=== PATIENT | female | born 1945 | race Caucasian/White ===

== ENCOUNTER 2017-05-06 12:35 | Emergency (ER) | payer MEDICARE ==
[2017-05-06 14:25] VITALS: BP 140/70
--- NOTE | 2017-05-06 15:21 | XRay Report ---
RIGHT SHOULDER, 3 VIEWS: HISTORY: right shoulder pain. Mild osteopenia. No acute osseous injury or joint pathology is detected. Mild osteoarthritic changes are identified. The soft tissues are unremarkable. IMPRESSION: Osteopenia. Osteoarthritis.
== END 2017-05-06 14:30 | disposition left against medical advice (07) ==
LOC: ED 12:35
DX: M25.512 Pain in left shoulder (principal); Z53.21 Procedure and treatment not carried out due to patient leaving prior to being seen by health care provider

== ENCOUNTER 2017-05-28 14:39 | Emergency (ER) | payer MEDICARE ==
[2017-05-28 15:58] LABS: Basophils % (Auto) 0.3 % (0.0-1.8); Hematocrit 42.7 % (30.3-42.9); Hemoglobin 14.8 gm/dl (10.1-14.3); Lymphocytes # (Auto) 1.2 K/mm3 (1.2-5.4); Lymphocytes % (Auto) 23.9 % (13.4-35.0); Mean Corpuscular HGB Conc 35 % (30-34); Mean Corpuscular Hemoglobin 33 pg (28-32); Mean Corpuscular Volume 95 fl (79-97); Monocytes # (Auto) 0.6 K/mm3 (0.0-0.8); Monocytes % (Auto) 11.4 % (0.0-7.3); Platelet Count 165 K/mm3 (140-440); Red Blood Count 4.51 M/mm3 (3.65-5.03); Red Cell Distribution Width 13.1 % (13.2-15.2)
[2017-05-28 16:08] LABS: Bilirubin,Urine NEG (Negative); Blood,Urine NEG (Negative); Color,Urine Yellow (Yellow); Mucus,Urine FEW /HPF; Nitrite,Urine NEG (Negative); Protein,Urine <15 mg/dL mg/dL (Negative); Urobilinogen,Urine < 2.0 mg/dL (<2.0)
[2017-05-28 16:16] LABS: Alanine Aminotransferase 19 units/L (7-56); Albumin 3.7 g/dL (3.9-5); BUN/Creatinine Ratio 16; Blood Urea Nitrogen 8 mg/dL (7-17); Calcium 9.2 mg/dL (8.4-10.2); Hemolysis Index 14; Lipase 23 units/L (13-60)
[2017-05-28 22:58] VITALS: BP 147/83
--- NOTE | 2017-05-28 23:56 | XRay Report ---
FINAL REPORT PROCEDURE: XR CHEST ROUTINE 2V TECHNIQUE: PA and lateral chest radiographs were obtained. CPT 38527 HISTORY: cough COMPARISON: No prior studies are available for comparison. FINDINGS: Heart: Normal. Mediastinum/Vessels: Normal. Lungs/Pleural space: Normal. Bony thorax: No acute osseous abnormality. Other: IMPRESSION: There is no evidence of an acute cardiopulmonary process.
--- NOTE | 2017-05-28 23:58 | Emergency Department Report ---
HPI - General Chief Complaint: Nausea/Vomiting/Diarrhea Time Seen by Provider: 05/28/17 22:55 - HPI HPI: This is a 71-year-old patient female presents to the emergency department, with her daughter translating bedside, with complaint of a 2 day history of some nausea, vomiting, mixed dry and productive cough and body aches. There is also a subjective fever and she has felt warm but there is no recorded temperatures. She has a past medical history of arthritis. No recent travel or sick contacts at home. She did not take anything for her symptoms prior to presentation. She does not smoke or use any illicit drug use. ED Past Medical Hx - Past Medical History Previous Medical History?: Yes Hx Arthritis: Yes - Surgical History Past Surgical History?: Yes Additional Surgical History: Back surgery, Left shoulder surgery - Social History Smoking Status: Never Smoker Substance Use Type: Non Opiate Pain - Medications Home Medications: Home Medications Medication Instructions Recorded Confirmed Last Taken Type Benzonatate [Tessalon Perles] 100 mg PO Q8HR PRN #20 capsule 05/29/17 Unknown Rx ED Review of Systems ROS: Stated complaint: FLU LIKE SYMPTOMS Other details as noted in HPI Comment: All other systems reviewed and negative Constitutional: fever (subjective). denies: diaphoresis Eyes: denies: eye pain, eye discharge, vision change ENT: denies: ear pain, throat pain Respiratory: cough. denies: shortness of breath Cardiovascular: denies: chest pain, palpitations Gastrointestinal: nausea, vomiting. denies: abdominal pain Genitourinary: denies: urgency, dysuria, discharge Musculoskeletal: myalgia. denies: joint swelling Skin: denies: rash, lesions Neurological: denies: headache, weakness, paresthesias Physical Exam - Physical Exam Vital Signs: Vital Signs 05/28/17 05/28/17 14:46 22:58 Temperature 98.2 F 97.8 F Pulse Rate 101 H 89 Respiratory 16 15 Rate Blood Pressure 118/75 Blood Pressure 147/83 [Left] O2 Sat by Pulse 97 98 Oximetry Physical Exam: GENERAL: The patient is well-developed well-nourished. HENT: Normocephalic. Atraumatic. Patient has moist mucous membranes. EYES: Extraocular motions are intact. Pupils equal reactive to light bilaterally. NECK: Supple. Trachea is midline. CHEST/LUNGS: Clear to auscultation. Occasional dry cough heard during examination. There is no respiratory distress noted. HEART/CARDIOVASCULAR: Regular. There is no tachycardia. There is no murmur. ABDOMEN: Abdomen is soft, nontender. Patient has normal bowel sounds. There is no abdominal distention. SKIN: Skin is warm and dry. NEURO: The patient is awake, alert, and oriented. The patient is cooperative. The patient has no focal neurologic deficits. The patient has normal speech. MUSCULOSKELETAL: There is no tenderness or deformity. There is no evidence of acute injury. ED Course Vital Signs 05/28/17 05/28/17 14:46 22:58 Temperature 98.2 F 97.8 F Pulse Rate 101 H 89 Respiratory 16 15 Rate Blood Pressure 118/75 Blood Pressure 147/83 [Left] O2 Sat by Pulse 97 98 Oximetry ED Medical Decision Making - Lab Data Result diagrams: 05/28/17 15:36 05/28/17 15:36 - EKG Data -: EKG Interpreted by Me EKG shows normal: sinus rhythm, axis (left axis deviation), intervals, QRS complexes, ST-T waves (nonspecific St-T waves) Rate: normal - EKG Data When compared to previous EKG there are: previous EKG unavailable Interpretation: nonspecific ST-T wave franck - Radiology Data Radiology results: image reviewed interpreted by me: Chest x-ray does not show any acute process. There are no pleural effusions, obvious pneumonia and there is no pneumothorax. - Medical Decision Making She presents with a 2 day history of a cough, nausea and vomiting and subjective fever. Abdomen unremarkable including no leukocytosis, electrolyte abnormalities, renal insufficiency or glucose abnormalities. Chest x-ray does not show any pneumonia, pleural effusions, pneumothorax or any other acute process. She is negative for influenza. Vital signs stable including being afebrile. She appears safe for discharge home at this time. She will take Tylenol and/or ibuprofen as needed for fever or discomfort and she was given a prescription for Tessalon Perles for cough. She has good follow-up with Dr. Arnold Fry across the street and has been encouraged to see them in a few days but return to the emergency Department with any worsening of her symptoms or any acute distress. - Differential Diagnosis influenza, URI, pneumonia, food poisoning Critical Care Time: No Critical care attestation.: If time is entered above; I have spent that time in minutes in the direct care of this critically ill patient, excluding procedure time. ED Disposition Clinical Impression: Viral syndrome Upper respiratory infection Qualifiers: URI type: unspecified URI Qualified Code(s): J06.9 - Acute upper respiratory infection, unspecified Disposition: TO HOME OR SELFCARE Is pt being admited?: No Condition: Stable Instructions: Upper Respiratory Infection (ED), Viral Syndrome (ED) Additional Instructions: Please follow-up with your primary care physician in the next few days. Return to the emergency Department with any worsening of your symptoms or any acute distress. He can use Tylenol every 4 hours and ibuprofen every 6 hours, using weight-based dosing, as needed for fever or discomfort. Prescriptions: Benzonatate [Tessalon Perles] 100 mg PO Q8HR PRN #20 capsule PRN Reason: Cough Referrals: ARNOLD FRY MD [Staff Physician] - [facility] Time of Disposition: 00:43
[2017-05-28] MEDS ORDERED: ZOFRAN ODT PO ONE (23:59)
== END 2017-05-29 00:49 | disposition home or self-care (01) ==
LOC: ED 14:39
DX: J06.9 Acute upper respiratory infection, unspecified (principal); B34.9 Viral infection, unspecified; M19.90 Unspecified osteoarthritis, unspecified site
CPT/HCPCS: 36415; 71046; 80053; 81001; 83690; 85025; 87400; 93005; 93010; Q0162

== ENCOUNTER 2019-12-24 07:53 | Observation (INO) | payer MEDICARE ==
[2019-12-24 08:55] LABS: Basophils % (Auto) 0.2 % (0.0-1.8); Eosinophils # (Auto) 0.1 K/mm3 (0.0-0.4); Eosinophils % (Auto) 1.5 % (0.0-4.3); Hematocrit 39.5 % (30.3-42.9); Hemoglobin 13.4 gm/dl (10.1-14.3); Lymphocytes # (Auto) 1.3 K/mm3 (1.2-5.4); Lymphocytes % (Auto) 20.6 % (13.4-35.0); Mean Corpuscular HGB Conc 34 % (30-34); Mean Corpuscular Volume 96 fl (79-97); Monocytes # (Auto) 0.5 K/mm3 (0.0-0.8); Monocytes % (Auto) 8.7 % (0.0-7.3); Platelet Count 223 K/mm3 (140-440); Red Blood Count 4.11 M/mm3 (3.65-5.03); Red Cell Distribution Width 14.9 % (13.2-15.2)
[2019-12-24 09:22] LABS: Alanine Aminotransferase 17 units/L (7-56); Albumin 3.7 g/dL (3.9-5); BUN/Creatinine Ratio 31; Blood Urea Nitrogen 22 mg/dL (7-17); Calcium 9.8 mg/dL (8.4-10.2); Hemolysis Index 4
[2019-12-24] MEDS ORDERED: ALUM-MAG HYDROXIDE-SIMETHICONE 200-200-20MG/5ML ORAL LIQD 30 ML PO ONE (10:32)
[2019-12-24] MEDS ORDERED: LIDOCAINE VISCOUS 2% 15 ML ORAL LIQD PO ONE (10:32)
--- NOTE | 2019-12-24 10:35 | Emergency Department Report ---
HPI - General Chief Complaint: Abdominal Pain Time Seen by Provider: 12/24/19 10:01 - [facility] HPI: This is a 74-year-old [place] female who presents to the emergency department with a 10-day history of lower sternal chest pain and midline upper abdominal/e pigastric pain. The pain has been constant over the past 10 days. There are no known aggravating or alleviating factors. It is not affected by eating food. She has taken Benadryl and omeprazole for her symptoms without any relief. She denies any shortness of breath, fever, nausea, vomiting, constipation, diarrhea, dysuria. Patient has a history of chronic back pain but does not feel that the pain radiates to her back. No recent travel or sick contacts at home. She has a primary care physician but has not seen them regarding her symptoms. The patient does not speak any Nauruan and therefore the language line interpretation services were used so the patient could provide information using her pamunkey Lao language. ED Past Medical Hx - Past Medical History Previous Medical History?: Yes Hx Arthritis: Yes - Surgical History Past Surgical History?: Yes Additional Surgical History: Back surgery, Left shoulder surgery. Right knee - Social History Smoking Status: Never Smoker Substance Use Type: Non Opiate Pain - Medications Home Medications: Home Medications Medication Instructions Recorded Confirmed Last Taken Type Benzonatate [Tessalon Perles] 100 mg PO Q8HR PRN #20 capsule 05/29/17 Unknown Rx ED Review of Systems ROS: Stated complaint: ABD PAIN Other details as noted in HPI Comment: All other systems reviewed and negative Constitutional: denies: chills, fever Eyes: denies: eye pain, vision change ENT: denies: ear pain, throat pain Respiratory: denies: cough, shortness of breath Cardiovascular: chest pain. denies: palpitations Gastrointestinal: abdominal pain. denies: vomiting Genitourinary: denies: dysuria, discharge Musculoskeletal: denies: joint swelling, arthralgia Skin: denies: rash, lesions Neurological: denies: headache, weakness Physical Exam - Physical Exam Vital Signs: Vital Signs 12/24/19 07:57 Temperature 98 F Pulse Rate 110 H Respiratory 18 Rate Blood Pressure 139/83 [Right] O2 Sat by Pulse 96 Oximetry ED Course Vital Signs 12/24/19 07:57 Temperature 98 F Pulse Rate 110 H Respiratory 18 Rate Blood Pressure 139/83 [Right] O2 Sat by Pulse 96 Oximetry - Reevaluation(s) Reevaluation #1: 12/24/19 13:52 Lab Results 12/24/19 12/24/19 12/24/19 Range/Units 08:31 08:31 10:41 WBC 6.1 (4.5-11.0) K/mm3 RBC 4.11 (3.65-5.03) M/mm3 Hgb 13.4 (10.1-14.3) gm/dl Hct 39.5 (30.3-42.9) % MCV 96 (79-97) fl MCH 33 H (28-32) pg MCHC 34 (30-34) % RDW 14.9 (13.2-15.2) % Plt Count 223 (140-440) K/mm3 Lymph % (Auto) 20.6 (13.4-35.0) % [place] % (Auto) 8.7 H (0.0-7.3) % Eos % (Auto) 1.5 (0.0-4.3) % Baso % (Auto) 0.2 (0.0-1.8) % Lymph # 1.3 (1.2-5.4) K/mm3 Kent # 0.5 (0.0-0.8) K/mm3 Eos # 0.1 (0.0-0.4) K/mm3 Baso # 0.0 (0.0-0.1) K/mm3 Seg Neutrophils % 69.0 (40.0-70.0) % Seg Neutrophils # 4.2 (1.8-7.7) K/mm3 Sodium 142 (137-145) mmol/L Potassium 3.6 (3.6-5.0) mmol/L Chloride 104.8 (98-107) mmol/L Carbon Dioxide 24 (22-30) mmol/L Anion Gap 17 mmol/L BUN 22 H (7-17) mg/dL Creatinine 0.7 (0.6-1.2) mg/dL Estimated GFR > 60 ml/min BUN/Creatinine Ratio 31 % Glucose 103 H (65-100) mg/dL Calcium 9.8 (8.4-10.2) mg/dL Total Bilirubin 0.50 (0.1-1.2) mg/dL AST 20 (5-40) units/L ALT 17 (7-56) units/L Alkaline Phosphatase 120 (35-129) units/L Troponin T < 0.010 (0.00-0.029) ng/mL Total Protein 6.4 (6.3-8.2) g/dL Albumin 3.7 L (3.9-5) g/dL Albumin/Globulin Ratio 1.4 % Lipase 40 (13-60) units/L Urine Color (Yellow) Urine Turbidity (Clear) Urine pH (5.0-7.0) Ur Specific [place] (1.003-1.030) Urine Protein (Negative) mg/dL Urine Glucose (UA) (Negative) mg/dL Urine Ketones (Negative) mg/dL Urine Blood (Negative) Urine Nitrite (Negative) Urine Bilirubin (Negative) Urine Urobilinogen (<2.0) mg/dL Ur Leukocyte Esterase (Negative) Urine WBC (Auto) (0.0-6.0) /HPF Urine RBC (Auto) (0.0-6.0) /HPF U Epithel Cells (Auto) (0-13.0) /HPF Urine Mucus /HPF 12/24/19 Range/Units 11:49 WBC (4.5-11.0) K/mm3 RBC (3.65-5.03) M/mm3 Hgb (10.1-14.3) gm/dl Hct (30.3-42.9) % MCV (79-97) fl MCH (28-32) pg MCHC (30-34) % RDW (13.2-15.2) % Plt Count (140-440) K/mm3 Lymph % (Auto) (13.4-35.0) % Kent % (Auto) (0.0-7.3) % Eos % (Auto) (0.0-4.3) % Baso % (Auto) (0.0-1.8) % Lymph # (1.2-5.4) K/mm3 Kent # (0.0-0.8) K/mm3 Eos # (0.0-0.4) K/mm3 Baso # (0.0-0.1) K/mm3 Seg Neutrophils % (40.0-70.0) % Seg Neutrophils # (1.8-7.7) K/mm3 Sodium (137-145) mmol/L Potassium (3.6-5.0) mmol/L Chloride (98-107) mmol/L Carbon Dioxide (22-30) mmol/L Anion Gap mmol/L BUN (7-17) mg/dL Creatinine (0.6-1.2) mg/dL Estimated GFR ml/min BUN/Creatinine Ratio % Glucose (65-100) mg/dL Calcium (8.4-10.2) mg/dL Total Bilirubin (0.1-1.2) mg/dL AST (5-40) units/L ALT (7-56) units/L Alkaline Phosphatase (35-129) units/L Troponin T (0.00-0.029) ng/mL Total Protein (6.3-8.2) g/dL Albumin (3.9-5) g/dL Albumin/Globulin Ratio % Lipase (13-60) units/L Urine Color Straw (Yellow) Urine Turbidity Clear (Clear) Urine pH 7.0 (5.0-7.0) Ur Specific [place] 1.031 H (1.003-1.030) Urine Protein <15 mg/dl (Negative) mg/dL Urine Glucose (UA) Neg (Negative) mg/dL Urine Ketones Neg (Negative) mg/dL Urine Blood Neg (Negative) Urine Nitrite Neg (Negative) Urine Bilirubin Neg (Negative) Urine Urobilinogen < 2.0 (<2.0) mg/dL Ur Leukocyte Esterase Tr (Negative) Urine WBC (Auto) 4.0 (0.0-6.0) /HPF Urine RBC (Auto) 2.0 (0.0-6.0) /HPF U Epithel Cells (Auto) 1.0 (0-13.0) /HPF Urine Mucus Few /HPF ED Medical Decision Making - Lab Data Result diagrams: 12/24/19 08:31 12/24/19 08:31 - EKG Data -: EKG Interpreted by Me EKG shows normal: sinus rhythm, axis, intervals, QRS complexes, ST-T waves Rate: normal - EKG Data When compared to previous EKG there are: previous EKG unavailable Interpretation: normal EKG - Radiology Data Radiology results: report reviewed, image reviewed interpreted by me: Chest x-ray does not show any acute process. There are no pleural effusions, obvious pneumonia and there is no pneumothorax. No significant cardiomegaly. Abdominal x-ray shows nonspecific nonobstructive bowel gas. There are some radiopaque objects within the small and large intestines that appears consistent with medications and/or pills taken. CTA CHEST, ABDOMEN, AND PELVIS WITH IV CONTRAST INDICATION: Midsternal chest pain CONTRAST: 100 cc Omnipaque 350 IV COMPARISON: None available. Three-plane MIP reconstructions were produced. All CT scans at this location are performed using CT dose reduction for ALARA by means of automated exposure control. FINDINGS: No significant axillary or chest wall abnormalities are seen. No mediastinal or hilar masses are noted. Minimal coronary artery calcifications are seen. No pleural effusions are noted. No obvious endobronchial lesions are seen. No pneumothorax or pneumomediastinum are noted. Mild bilateral atelectatic changes are seen. No significant acute infiltrates are noted. Calcified granulomata are noted in the right lower lobe. No pulmonary soft tissue nodules or masses are seen. No pneumoperitoneum is seen. Liver shows mild fatty infiltration but is not significantly enlarged. I see no significant abnormalities of the adrenals, pancreas, or spleen. Gallbladder and bile ducts appear within normal limits. No urinary obstructive changes are seen but there appears to be mild bilateral nephrolithiasis. Mild scarring is seen in the left kidney. No lymphadenopathy is seen. No free fluid is noted. No adnexal masses are seen. No evidence of bowel obstruction is noted. No focal inflammatory changes are seen. Appendix appears within normal limits. The distal antrum of the stomach may show mild wall thickening but I do not see surrounding i nflammatory change and no obvious ulcer is noted. Duodenum shows no abnormalities. The thoracic aorta shows mild atherosclerotic changes. There is no evidence of dissection. No significant stenosis is seen. Ectasia of the ascending portion is noted to a diameter of 3.5 cm. The distal arch is also mi ldly ectatic to a diameter of 2.9 cm other portions appear within normal limits. Visualized pulmonary arteries show no evidence of pulmonary thromboembolism. The abdominal aorta shows atherosclerotic changes but no aneurysmal dilatation, stenosis, or evidence of dissection. The celiac axis shows atherosclerotic changes at the origin but I do not see significant stenosis. Mesenteric artery shows moderate atherosclerotic changes at the origin but also does not show significant stenosis. Renal arteries show no significant stenoses. Inferior mesenteric artery opacifies. Flow is seen into the iliac system bilaterally with no aneurysmal dilatation seen and no significant iliac artery stenosis noted. Internal iliac arteries opacify. The visualized portions of the upper femoral systems bilaterally show no significant lesions. IMPRESSION: 1. No significant vascular abnormality is seen with only mild changes as detailed above in multiple areas 2. Question of wall thickening in the distal antrum of the stomach though possibly artifactual. Distal gastritis or peptic ulcer disease could be possible and clinical correlation is suggested. No obvious ulcer is detected and no surrounding inflammation is seen. 3. Bilateral nephrolithiasis without obstructive change - Medical Decision Making This patient presents with a 10-day history of lower midsternal pain and epigastric pain. The abdominal pain is reproducible to palpation, but the chest does not. EKG does not have any morphology consistent with ST elevation [place]. Chest x-ray does not show any pneumonia, pleural effusions, pneumothorax, or any other acute process. Abdominal x-ray shows nonspecific nonobstructive bowel gas. The patient's labs have been unremarkable thus far including CBC, meta bolic panel and a negative troponin. Given the patient's age and her complaints of midline pain to the chest and abdomen, she had a CT angiography study done of the chest, abdomen, and pelvis to further evaluate the aorta, rule out pulmonary emboli, and viewed the solid organs. The CT angiography studies resulted as some mild inflammation to the stomach but no signs of any ulcer, perforation, or any other acute processes. Patient was given a GI cocktail and she says that it helped at first but the pain is come back to its initial intensity. Given that she continues to have chest pain, and has not had a full cardiac work-up at any point, the patient will be admitted to the hospital for further evaluation and treatment. She was accepted for admission by the hospitalist, Dr. Goins. Critical Care Time: No Critical care attestation.: If time is entered above; I have spent that time in minutes in the direct care of this critically ill patient, excluding procedure time. ED Disposition Clinical Impression: Acute chest pain, Epigastric pain, Chest pain, rule out acute myocardial infarction Disposition: OP ADMIT IP TO THIS HOSP Is pt being admited?: Yes Condition: Fair Referrals: LEANDRO FRY MD [Primary Care Provider] - 3-5 Days Time of Disposition: 12:41 HEART Score - HEART Score History: Slightly suspicious EKG: Normal Age: > 65 Risk factors: 1-2 risk factors Troponin: Troponin T < 0.010 ng/mL (0.00-0.029) 12/24/19 10:41 Troponin: < normal limit HEART Score: 3 - Critical Actions Critical Actions: 0-3 pts:0.9-1.7%risk of adverse cardiac event.Candidate for discharge AMELIA score - Amelia Score Age > 65: (1) Yes Aspirin use within the Past 7 Days: (0) No 3 or more CAD Risk Factors: (0) No 2 or more Angina events in past 24 hrs: (1) Yes Known CAD with more than 50% Stenosis: (0) No Elevated Cardiac Markers: (0) No ST Deviation Greater than 0.5mm: (0) No AMELIA Score: 2
--- NOTE | 2019-12-24 11:30 | XRay Report ---
Acute abdomen series 3 views 1043 INDICATION: Abdominal pain, lower sternal area pain COMPARISON: Chest x-ray 05/28/2017 Chronic changes are again seen in the lung tenorio including calcified granulomata in the left apical area. No obvious acute infiltrates are seen. Artifact overlies the upper chest. No pneumoperitoneum i s seen. Multiple high density foci are seen in the colon from ingestion. No evidence of bowel obstruc tion is seen. Calcifications of the lower pelvis probably are vascular. Lumbar scoliosis and degenera tive changes are seen. Signer Name: Rayray Decker MD Signed: 12/24/2019 11:26 AM Workstation Name: [id number]
[2019-12-24 12:02] LABS: Bilirubin,Urine NEG (Negative); Blood,Urine NEG (Negative); Color,Urine Straw (Yellow); Mucus,Urine FEW /HPF; Protein,Urine <15 mg/dL mg/dL (Negative); Urobilinogen,Urine < 2.0 mg/dL (<2.0)
--- NOTE | 2019-12-24 12:15 | Cat Scan Report ---
CTA CHEST, ABDOMEN, AND PELVIS WITH IV CONTRAST INDICATION: Midsternal chest pain CONTRAST: 100 cc Omnipaque 350 IV COMPARISON: None available. Three-plane MIP reconstructions were produced. All CT scans at this location are performed using CT d ose reduction for ALARA by means of automated exposure control. FINDINGS: No significant axillary or chest wall abnormalities are seen. No mediastinal or hilar haseeb s are noted. Minimal coronary artery calcifications are seen. No pleural effusions are noted. No obvi ous endobronchial lesions are seen. No pneumothorax or pneumomediastinum are noted. Mild bilateral at electatic changes are seen. No significant acute infiltrates are noted. Calcified granulomata are not ed in the right lower lobe. No pulmonary soft tissue nodules or masses are seen. No pneumoperitoneum is seen. Liver shows mild fatty infiltration but is not significantly enlarged. I see no significant abnormalities of the adrenals, pancreas, or spleen. Gallbladder and bile ducts ap pear within normal limits. No urinary obstructive changes are seen but there appears to be mild bilat eral nephrolithiasis. Mild scarring is seen in the left kidney. No lymphadenopathy is seen. No free f luid is noted. No adnexal masses are seen. No evidence of bowel obstruction is noted. No focal inflam matory changes are seen. Appendix appears within normal limits. The distal antrum of the stomach may show mild wall thickening but I do not see surrounding inflammatory change and no obvious ulcer is no javier. Duodenum shows no abnormalities. The thoracic aorta shows mild atherosclerotic changes. There is no evidence of dissection. No signifi cant stenosis is seen. Ectasia of the ascending portion is noted to a diameter of 3.5 cm. The distal arch is also mildly ectatic to a diameter of 2.9 cm other portions appear within normal limits. Visua lized pulmonary arteries show no evidence of pulmonary thromboembolism. The abdominal aorta shows atherosclerotic changes but no aneurysmal dilatation, stenosis, or evidence of dissection. The celiac axis shows atherosclerotic changes at the origin but I do not see signific ant stenosis. Mesenteric artery shows moderate atherosclerotic changes at the origin but also does not show signifi cant stenosis. Renal arteries show no significant stenoses. Inferior mesenteric artery opacifies. Moises w is seen into the iliac system bilaterally with no aneurysmal dilatation seen and no significant piotr ac artery stenosis noted. Internal iliac arteries opacify. The visualized portions of the upper femor al systems bilaterally show no significant lesions. IMPRESSION: 1. No significant vascular abnormality is seen with only mild changes as detailed above in multiple a reas 2. Question of wall thickening in the distal antrum of the stomach though possibly artifactual. Dista l gastritis or peptic ulcer disease could be possible and clinical correlation is suggested. No obvio us ulcer is detected and no surrounding inflammation is seen. 3. Bilateral nephrolithiasis without obstructive change Signer Name: Rayray Decker MD Signed: 12/24/2019 12:11 PM Workstation Name: [id number]
[2019-12-24] MEDS ORDERED: ASPIRIN 81 MG TAB CHEW PO ONE (12:42)
[2019-12-24] MEDS ORDERED: NITROGLYCERIN 0.4 MG TAB SUBL SL PRN (12:52)
[2019-12-24] MEDS ORDERED: ACETAMINOPHEN 325 MG TAB PO PRN (12:52)
[2019-12-24] MEDS ORDERED: MORPHINE 4 MG/1 ML INJ IV PRN ×2 (12:52→14:20)
--- NOTE | 2019-12-24 14:08 | History and Physical Report ---
<VALDO SCHNEIDER - Last Filed: 12/24/19 16:56> History of Present Illness Date of examination: 12/24/19 Chief complaint: abd pain for 10 days History of present illness: This is a 74-year-old female with chronic back pain, arthritis, scoliosis, gastritis, GERD and "leaky valves" who presents to the emergency department today for a 10-day history of upper abdominal pain in the epigastric region which she described as a burning sharp pain from the "top of the stomach at sphincter to the end at the esophagus" She states the pain gets worse with eating and does not have any radiation to her throat or back. The only the relieves her pain is IV pain medications which she received which was received in the emergency department. She states she took omeprazole and Benadryl without any relief at home. She denies any shortness of breath, fever, nausea vomiting, constipation, diarrhea, cough, night sweats or recent weight loss. She denies any melena, hematochezia, or hematemesis. She denies any recent travel, contact with sick individuals, contact with any presents with known COVID-19 infections. Work-up in the emergency department reveals hypokalemia at 3.6. A CT abdomen obtained in the emergency department shows lumbar scoliosis and degenerative changes and a calcified granuloma in her apical left lung. A CT abdomen/pelvis shows mild arteriosclerotic changes to her thoracic aorta, abdominal aorta, mesenteric artery, mild bilateral atelectatic changes in her lower lungs, mild fatty liver, mild bilateral nephrolithiasis without obstruction and wall thickening of the distal atrium of stomach which can be hospital sales representative of distal gastritis or peptic ulcer. GI was consulted. She will be admitted to the hospitalist service for pain control and work-up of abdominal pain. Attempted to contact advance care planning at bedside however the patient was not able to understand the question. Her history is obtained with the use of the parts interpreter line. Past History Past Medical History: arthritis, GERD, other (Scoliosis, arthritis, chronic back pain). denies: diabetes, ESRD Past Surgical History: No surgical history Social history: , lives with family. denies: smoking, alcohol abuse, prescription drug abuse, IV drug use Family history: no significant family history Medications and Allergies Allergies Allergy/AdvReac Type Severity Reaction Status Date / Time No Known Allergies Allergy Unverified 05/06/17 14:25 Home Medications Medication Instructions Recorded Confirmed Last Taken Type No Known Home Medications [No 12/24/19 12/24/19 Unknown History Reported Home Medications] Active Meds: Active Medications Acetaminophen (Tylenol) 650 mg PO Q6H PRN PRN Reason: Pain, Mild (1-3) Morphine Sulfate (Morphine) 2 mg IV Q5MIN PRN PRN Reason: Chest Pain Nitroglycerin (Nitrostat) 0.4 mg SL Q5M PRN PRN Reason: Chest Pain Sodium Chloride (Sodium Chloride Flush Syringe 10 Ml) 10 ml IV PRN PRN PRN Reason: LINE FLUSH Review of Systems Constitutional: no weight loss, no weight gain, no fever, no chills, no sweats, no night sweats, no anorexia, no fatigue, no weakness, no malaise, no lethargy Ears, nose, mouth and throat: no ear pain, no ear discharge, no tinnitis, no decreased hearing, no nose pain, no nasal congestion, no nasal discharge, no sinus pressure, no epistaxis Cardiovascular: no chest pain, no orthopnea, no palpitations, no rapid/irregular heart beat, no edema, no syncope, no lightheadedness, no shortness of breath, no dyspnea on exertion, no high blood pressure, no leg edema Respiratory: no cough, no cough with sputum, no excessive sputum, no hemoptysis, no shortness of breath, no dyspnea on exertion Gastrointestinal: abdominal pain (See HPI for details), no nausea, no vomiting, no diarrhea, no constipation, no change in bowel habits, no hematemesis, no coffee ground emesis, no BRBPR, no melena, no hematochezia, no loss of appetite Genitourinary Female: no pelvic pain, no flank pain, no urgency, no stress incontinence Rectal: no pain, no incontinence, no bleeding, no hemorrhoids Musculoskeletal: no neck stiffness, no neck pain, no shooting arm pain, no arm numbness/tingling, no low back pain, no shooting leg pain, no leg numbness/ti ngling, no frequent falls Integumentary: no rash, no pruritis, no redness, no sores, no wounds, no jaundice, no growths Neurological: no head injury, no transient paralysis, no paralysis, no weakness, no parathesias, no numbness, no tingling, no seizures, no syncope, no tremors, no vertigo, no headaches Psychiatric: no anxiety, no memory loss, no insomnia Endocrine: no cold intolerance, no heat intolerance, no polyphagia, no excessive thirst, no polydipsia, no polyuria, no nocturia Hematologic/Lymphatic: no easy bruising, no easy bleeding Allergic/Immunologic: no urticaria, no allergic rhinitis Exam - Constitutional Vitals: Temp Pulse Resp BP Pulse Ox 98 F 110 H 18 139/83 96 12/24/19 07:57 12/24/19 07:57 12/24/19 07:57 12/24/19 07:57 12/24/19 07:57 General appearance: Present: no acute distress - EENT Eyes: Present: PERRL, EOM intact ENT: hearing intact - Neck Neck: Present: supple, normal ROM - Respiratory Respiratory effort: normal Respiratory: bilateral: CTA - Cardiovascular Rhythm: regular Heart Sounds: Present: S1 & S2. Absent: systolic murmur, diastolic murmur - Extremities Extremities: no ischemia, pulses intact, pulses symmetrical, No edema, normal temperature, normal color, Full ROM Peripheral Pulses: within normal limits - Abdominal General gastrointestinal: Present: soft, tender, non-distended, normal bowel sounds Localized gastrointestinal: tender: epigastric periumbilical, midline - Integumentary Integumentary: Present: clear, warm, dry - Musculoskeletal Musculoskeletal: strength equal bilaterally - Psychiatric Psychiatric: appropriate mood/affect, cooperative - Neurologic Neurologic: CNII-XII intact, no focal deficits, moves all extremities - Allied Health Allied health notes reviewed: nursing HEART Score - HEART Score EKG: Normal Age: > 65 Risk factors: 1-2 risk factors Troponin: Troponin T < 0.010 ng/mL (0.00-0.029) 12/24/19 10:41 Troponin: < normal limit - Critical Actions Critical Actions: 0-3 pts:0.9-1.7%risk of adverse cardiac event.Candidate for discharge Results - Labs CBC & Chem 7: 12/24/19 08:31 12/24/19 08:31 Labs: Laboratory Last Values WBC 6.1 K/mm3 (4.5-11.0) 12/24/19 08:31 RBC 4.11 M/mm3 (3.65-5.03) 12/24/19 08:31 Hgb 13.4 gm/dl (10.1-14.3) 12/24/19 08:31 Hct 39.5 % (30.3-42.9) 12/24/19 08:31 MCV 96 fl (79-97) 12/24/19 08:31 MCH 33 pg (28-32) H 12/24/19 08:31 MCHC 34 % (30-34) 12/24/19 08:31 RDW 14.9 % (13.2-15.2) 12/24/19 08:31 Plt Count 223 K/mm3 (140-440) 12/24/19 08:31 Lymph % (Auto) 20.6 % (13.4-35.0) 12/24/19 08:31 [place] % (Auto) 8.7 % (0.0-7.3) H 12/24/19 08:31 Eos % (Auto) 1.5 % (0.0-4.3) 12/24/19 08:31 Baso % (Auto) 0.2 % (0.0-1.8) 12/24/19 08:31 Lymph # 1.3 K/mm3 (1.2-5.4) 12/24/19 08:31 [place] # 0.5 K/mm3 (0.0-0.8) 12/24/19 08:31 Eos # 0.1 K/mm3 (0.0-0.4) 12/24/19 08:31 Baso # 0.0 K/mm3 (0.0-0.1) 12/24/19 08:31 Seg Neutrophils % 69.0 % (40.0-70.0) 12/24/19 08:31 Seg Neutrophils # 4.2 K/mm3 (1.8-7.7) 12/24/19 08:31 Sodium 142 mmol/L (137-145) 12/24/19 08:31 Potassium 3.6 mmol/L (3.6-5.0) 12/24/19 08:31 Chloride 104.8 mmol/L (98-107) 12/24/19 08:31 Carbon Dioxide 24 mmol/L (22-30) 12/24/19 08:31 Anion Gap 17 mmol/L 12/24/19 08:31 BUN 22 mg/dL (7-17) H 12/24/19 08:31 Creatinine 0.7 mg/dL (0.6-1.2) 12/24/19 08:31 Estimated GFR > 60 ml/min 12/24/19 08:31 BUN/Creatinine Ratio 31 % 12/24/19 08:31 Glucose 103 mg/dL (65-100) H 12/24/19 08:31 Calcium 9.8 mg/dL (8.4-10.2) 12/24/19 08:31 Total Bilirubin 0.50 mg/dL (0.1-1.2) 12/24/19 08:31 AST 20 units/L (5-40) 12/24/19 08:31 ALT 17 units/L (7-56) 12/24/19 08:31 Alkaline Phosphatase 120 units/L (35-129) 12/24/19 08:31 Troponin T < 0.010 ng/mL (0.00-0.029) 12/24/19 10:41 Total Protein 6.4 g/dL (6.3-8.2) 12/24/19 08:31 Albumin 3.7 g/dL (3.9-5) L 12/24/19 08:31 Albumin/Globulin Ratio 1.4 % 12/24/19 08:31 Lipase 40 units/L (13-60) 12/24/19 10:41 Urine Color Straw (Yellow) 12/24/19 11:49 Urine Turbidity Clear (Clear) 12/24/19 11:49 Urine pH 7.0 (5.0-7.0) 12/24/19 11:49 Ur Specific [place] 1.031 (1.003-1.030) H 12/24/19 11:49 Urine Protein <15 mg/dl mg/dL (Negative) 12/24/19 11:49 Urine Glucose (UA) Neg mg/dL (Negative) 12/24/19 11:49 Urine Ketones Neg mg/dL (Negative) 12/24/19 11:49 Urine Blood Neg (Negative) 12/24/19 11:49 Urine Nitrite Neg (Negative) 12/24/19 11:49 Urine Bilirubin Neg (Negative) 12/24/19 11:49 Urine Urobilinogen < 2.0 mg/dL (<2.0) 12/24/19 11:49 Ur Leukocyte Esterase Tr (Negative) 12/24/19 11:49 Urine WBC (Auto) 4.0 /HPF (0.0-6.0) 12/24/19 11:49 Urine RBC (Auto) 2.0 /HPF (0.0-6.0) 12/24/19 11:49 U Epithel Cells (Auto) 1.0 /HPF (0-13.0) 12/24/19 11:49 Urine Mucus Few /HPF 12/24/19 11:49 - Imaging and Cardiology Abdominal x-ray: report reviewed CT scan - abdomen: report reviewed CT scan - chest: report reviewed CT scan - pelvis: report reviewed - Diagnostic Impressions Diagnostic Impressions: 12/23 ABD x-ray shows chronic changes are again seen in the lung tenorio including calcified granulomata in the left apical area. No obvious acute infiltrates are seen. Artifact overlies the upper chest. No pneumoperitoneum is seen. Multiple high density foci are seen in the colon from ingestion. No evidence of bowel obstruction is seen. Calcifications of the lower pelvis probably are vascular. Lumbar scoliosis and degenerative changes are seen. 12/23 CTA abdomen/pelvis shows no significant vascular abnormality is seen with only mild changes as detailed above in multiple areas, question of wall thickening in the distal antrum of the stomach though possibly artifactual, distal gastritis or peptic ulcer disease could be possible and clinical correlation is suggested, no obvious ulcer is detected and no surrounding inflam mation is seen, bilateral nephrolithiasis without obstructive change. 12/23 CTA chest shows no significant vascular abnormality is seen with only mild changes as detailed above in multiple areas , question of wall thickening in the distal antrum of the stomach though possibly artifactual, distal gastritis or peptic ulcer disease could be possible and clinical correlation is suggested with o obvious ulcer is detected and no surrounding inflammation is seen and bilateral nephrolithiasis without obstructive change Hercules/IV: IV Catheter Type [Left Forearm INT / Saline Lock ] Assessment and Plan VTE prophylaxis?: Chemical, Mechanical Plan of care discussed with patient/family: Yes - Patient Problems (1) Epigastric pain Current Visit: Yes Status: Acute Plan to address problem: - GI consult - PPI IV BID - Full liquid diet - IV morphine, p.o. oxycodone PRN - IV antiemetic PRN - Supportive care (2) DVT prophylaxis Current Visit: Yes Status: Acute Plan to address problem: -Lovenox subcu -SCDs while in bed (3) Full code status Current Visit: Yes Status: Acute <ASHLEY VEGA G - Last Filed: 12/24/19 19:31> History of Present Illness Date of admission: 12/24/19 12:42 Medications and Allergies Active Meds: Active Medications Acetaminophen (Tylenol) 650 mg PO Q6H PRN PRN Reason: Pain, Mild (1-3) Al Hydrox/Mg Hydrox/Simethicone (Alum-Mag Hydrox-Simeth [id number]/5ml) 30 ml PO Q4H PRN PRN Reason: Indigestion Enoxaparin Sodium (Enoxaparin) 40 mg SUB-Q QDAY@1000 MARIBEL Sodium Chloride (Nacl 0.9% 1000 Ml) 1,000 mls @ 75 mls/hr IV DIRECT MARIBEL Morphine Sulfate (Morphine) 1 mg IV Q6HR PRN PRN Reason: Pain , Severe (7-10) Last Admin: 12/24/19 17:21 Dose: 1 mg Documented by: Ondansetron HCl (Zofran) 4 mg IV Q8H PRN PRN Reason: Nausea And Vomiting Last Admin: 12/24/19 17:22 Dose: 4 mg Documented by: Oxycodone/Acetaminophen (Percocet 5/325) 1 tab PO Q6H PRN PRN Reason: Pain, Moderate (4-6) Pantoprazole Sodium (Protonix) 40 mg IV BID MARIBEL Sodium Chloride (Sodium Chloride Flush Syringe 10 Ml) 10 ml IV PRN PRN PRN Reason: LINE FLUSH Exam - Constitutional Vitals: Temp Pulse Resp BP Pulse Ox 98.9 F 77 18 132/90 96 12/24/19 16:46 12/24/19 16:46 12/24/19 16:46 12/24/19 16:46 12/24/19 16:46 HEART Score - HEART Score Troponin: Troponin T < 0.010 ng/mL (0.00-0.029) 12/24/19 13:36 Results - Labs CBC & Chem 7: 12/24/19 08:31 12/24/19 08:31 Labs: Laboratory Last Values WBC 6.1 K/mm3 (4.5-11.0) 12/24/19 08:31 RBC 4.11 M/mm3 (3.65-5.03) 12/24/19 08:31 Hgb 13.4 gm/dl (10.1-14.3) 12/24/19 08:31 Hct 39.5 % (30.3-42.9) 12/24/19 08:31 MCV 96 fl (79-97) 12/24/19 08:31 MCH 33 pg (28-32) H 12/24/19 08:31 MCHC 34 % (30-34) 12/24/19 08:31 RDW 14.9 % (13.2-15.2) 12/24/19 08:31 Plt Count 223 K/mm3 (140-440) 12/24/19 08:31 Lymph % (Auto) 20.6 % (13.4-35.0) 12/24/19 08:31 [place] % (Auto) 8.7 % (0.0-7.3) H 12/24/19 08:31 Eos % (Auto) 1.5 % (0.0-4.3) 12/24/19 08:31 Baso % (Auto) 0.2 % (0.0-1.8) 12/24/19 08:31 Lymph # 1.3 K/mm3 (1.2-5.4) 12/24/19 08:31 [place] # 0.5 K/mm3 (0.0-0.8) 12/24/19 08:31 Eos # 0.1 K/mm3 (0.0-0.4) 12/24/19 08:31 Baso # 0.0 K/mm3 (0.0-0.1) 12/24/19 08:31 Seg Neutrophils % 69.0 % (40.0-70.0) 12/24/19 08:31 Seg Neutrophils # 4.2 K/mm3 (1.8-7.7) 12/24/19 08:31 Sodium 142 mmol/L (137-145) 12/24/19 08:31 Potassium 3.6 mmol/L (3.6-5.0) 12/24/19 08:31 Chloride 104.8 mmol/L (98-107) 12/24/19 08:31 Carbon Dioxide 24 mmol/L (22-30) 12/24/19 08:31 Anion Gap 17 mmol/L 12/24/19 08:31 BUN 22 mg/dL (7-17) H 12/24/19 08:31 Creatinine 0.7 mg/dL (0.6-1.2) 12/24/19 08:31 Estimated GFR > 60 ml/min 12/24/19 08:31 BUN/Creatinine Ratio 31 % 12/24/19 08:31 Glucose 103 mg/dL (65-100) H 12/24/19 08:31 Hemoglobin A1c 5.9 % (4-6) 12/24/19 13:36 Calcium 9.8 mg/dL (8.4-10.2) 12/24/19 08:31 Total Bilirubin 0.50 mg/dL (0.1-1.2) 12/24/19 08:31 AST 20 units/L (5-40) 12/24/19 08:31 ALT 17 units/L (7-56) 12/24/19 08:31 Alkaline Phosphatase 120 units/L (35-129) 12/24/19 08:31 Troponin T < 0.010 ng/mL (0.00-0.029) 12/24/19 13:36 NT-Pro-B Natriuret Pep 28.37 pg/mL (0-900) 12/24/19 13:36 Total Protein 6.4 g/dL (6.3-8.2) 12/24/19 08:31 Albumin 3.7 g/dL (3.9-5) L 12/24/19 08:31 Albumin/Globulin Ratio 1.4 % 12/24/19 08:31 Lipase 40 units/L (13-60) 12/24/19 10:41 Urine Color Straw (Yellow) 12/24/19 11:49 Urine Turbidity Clear (Clear) 12/24/19 11:49 Urine pH 7.0 (5.0-7.0) 12/24/19 11:49 Ur Specific [place] 1.031 (1.003-1.030) H 12/24/19 11:49 Urine Protein <15 mg/dl mg/dL (Negative) 12/24/19 11:49 Urine Glucose (UA) Neg mg/dL (Negative) 12/24/19 11:49 Urine Ketones Neg mg/dL (Negative) 12/24/19 11:49 Urine Blood Neg (Negative) 12/24/19 11:49 Urine Nitrite Neg (Negative) 12/24/19 11:49 Urine Bilirubin Neg (Negative) 12/24/19 11:49 Urine Urobilinogen < 2.0 mg/dL (<2.0) 12/24/19 11:49 Ur Leukocyte Esterase Tr (Negative) 12/24/19 11:49 Urine WBC (Auto) 4.0 /HPF (0.0-6.0) 12/24/19 11:49 Urine RBC (Auto) 2.0 /HPF (0.0-6.0) 12/24/19 11:49 U Epithel Cells (Auto) 1.0 /HPF (0-13.0) 12/24/19 11:49 Urine Mucus Few /HPF 12/24/19 11:49 Hercules/IV: Voiding Method Toilet IV Catheter Type [Left Forearm INT / Saline Lock ] Assessment and Plan Assessment and plan: Patient seen and examined Urp-Gnulwwd-ogtwzykl Chinese female History of pain from patient's CTA chest and CT of the abdomen and pelvis results reviewed GI note reviewed and appreciated I agree with assessment and plan as outlined by the midlevel Continue PPI
[2019-12-24] MEDS ORDERED: ENOXAPARIN 30 MG/0.3 ML INJ SUB-Q SCH (14:17)
--- NOTE | 2019-12-24 15:20 | Gastroenterology Consultation ---
History of Present Illness - Reason for Consult Consult date: 12/24/19 abdominal pain Requesting physician: LYNDA PAYTON - History of Present Illness 74 yo female with pmh of gastritis and GERD presenting to the ED for 10 day h/o upper abdominal pain and nausea. history obtained via phone gleason operator. She reports having worsening epigastric pain worse with eating. She took omeprazole without relief at home. Denies cough, chest pain, sob, fever/chills, diarrhea, or blood in the stools. CT a/p in the ED showed wall thickening of distal antrum of stomach. Medication list reviewed. Past History Past Medical History: arthritis, GERD, other (Scoliosis, arthritis, chronic back pain). denies: diabetes, ESRD Past Surgical History: No surgical history Social history: , lives with family. denies: smoking, alcohol abuse, prescription drug abuse, IV drug use Family history: no significant family history Medications and Allergies Allergies Allergy/AdvReac Type Severity Reaction Status Date / Time No Known Allergies Allergy Unverified 05/06/17 14:25 Home Medications Medication Instructions Recorded Confirmed Last Taken Type No Known Home Medications [No 12/24/19 12/24/19 Unknown History Reported Home Medications] Active Meds: Active Medications Acetaminophen (Tylenol) 650 mg PO Q6H PRN PRN Reason: Pain, Mild (1-3) Enoxaparin Sodium (Enoxaparin) 40 mg SUB-Q QDAY@1000 MARIBEL Morphine Sulfate (Morphine) 1 mg IV Q6HR PRN PRN Reason: Pain , Severe (7-10) Ondansetron HCl (Zofran) 4 mg IV Q8H PRN PRN Reason: Nausea And Vomiting Oxycodone/Acetaminophen (Percocet 5/325) 1 tab PO Q6H PRN PRN Reason: Pain, Moderate (4-6) Pantoprazole Sodium (Protonix) 40 mg IV BID MARIBEL Sodium Chloride (Sodium Chloride Flush Syringe 10 Ml) 10 ml IV PRN PRN PRN Reason: LINE FLUSH Review of Systems - Review of Systems All systems: negative Constitutional: no weight loss, no weight gain Eyes: no change in vision Ears, Nose, Throat: no decreased hearing Cardiovascular: no chest pain, no edema Respiratory: no cough, no shortness of breath Gastrointestinal: abdominal pain, nausea, no vomiting, no diarrhea, no constipation, no BRBPR, no melena, no early satiety Musculoskeletal: no gait dysfunction Neurological: no head injury Psychiatric: no anxiety Exam - Constitutional Vital Signs: Temp Pulse Resp BP Pulse Ox 98.0 F 92 H 18 140/80 97 12/24/19 14:22 12/24/19 14:22 12/24/19 14:22 12/24/19 14:22 12/24/19 14:22 General appearance: no acute distress - EENT Eyes: EOM intact ENT: hearing intact - Neck Neck: supple - Respiratory Respiratory effort: normal - Cardiovascular Rhythm: regular Heart Sounds: Present: S1 & S2 - Gastrointestinal General gastrointestinal: Present: soft, tender, non-distended, normal bowel sounds - Integumentary Integumentary: Present: clear, warm - Neurologic Neurological: alert and oriented x3 - Labs CBC & Chem 7: 12/24/19 08:31 12/24/19 08:31 Lab Results: Laboratory Results - last 24 hr 12/24/19 12/24/19 12/24/19 08:31 08:31 10:41 WBC 6.1 RBC 4.11 Hgb 13.4 Hct 39.5 MCV 96 MCH 33 H MCHC 34 RDW 14.9 Plt Count 223 Lymph % (Auto) 20.6 [place] % (Auto) 8.7 H Eos % (Auto) 1.5 Baso % (Auto) 0.2 Lymph # 1.3 [place] # 0.5 Eos # 0.1 Baso # 0.0 Seg Neutrophils % 69.0 Seg Neutrophils # 4.2 Sodium 142 Potassium 3.6 Chloride 104.8 Carbon Dioxide 24 Anion Gap 17 BUN 22 H Creatinine 0.7 Estimated GFR > 60 BUN/Creatinine Ratio 31 Glucose 103 H Hemoglobin A1c Calcium 9.8 Total Bilirubin 0.50 AST 20 ALT 17 Alkaline Phosphatase 120 Troponin T < 0.010 NT-Pro-B Natriuret Pep Total Protein 6.4 Albumin 3.7 L Albumin/Globulin Ratio 1.4 Lipase 40 Urine Color Urine Turbidity Urine pH Ur Specific [place] Urine Protein Urine Glucose (UA) Urine Ketones Urine Blood Urine Nitrite Urine Bilirubin Urine Urobilinogen Ur Leukocyte Esterase Urine WBC (Auto) Urine RBC (Auto) U Epithel Cells (Auto) Urine Mucus 12/24/19 12/24/19 12/24/19 11:49 13:36 13:36 WBC RBC Hgb Hct MCV MCH MCHC RDW Plt Count Lymph % (Auto) [place] % (Auto) Eos % (Auto) Baso % (Auto) Lymph # [place] # Eos # Baso # Seg Neutrophils % Seg Neutrophils # Sodium Potassium Chloride Carbon Dioxide Anion Gap BUN Creatinine Estimated GFR BUN/Creatinine Ratio Glucose Hemoglobin A1c 5.9 Calcium Total Bilirubin AST ALT Alkaline Phosphatase Troponin T NT-Pro-B Natriuret Pep 28.37 Total Protein Albumin Albumin/Globulin Ratio Lipase Urine Color Straw Urine Turbidity Clear Urine pH 7.0 Ur Specific [place] 1.031 H Urine Protein <15 mg/dl Urine Glucose (UA) Neg Urine Ketones Neg Urine Blood Neg Urine Nitrite Neg Urine Bilirubin Neg Urine Urobilinogen < 2.0 Ur Leukocyte Esterase Tr Urine WBC (Auto) 4.0 Urine RBC (Auto) 2.0 U Epithel Cells (Auto) 1.0 Urine Mucus Few 12/24/19 13:36 WBC RBC Hgb Hct MCV MCH MCHC RDW Plt Count Lymph % (Auto) [place] % (Auto) Eos % (Auto) Baso % (Auto) Lymph # [place] # Eos # Baso # Seg Neutrophils % Seg Neutrophils # Sodium Potassium Chloride Carbon Dioxide Anion Gap BUN Creatinine Estimated GFR BUN/Creatinine Ratio Glucose Hemoglobin A1c Calcium Total Bilirubin AST ALT Alkaline Phosphatase Troponin T < 0.010 NT-Pro-B Natriuret Pep Total Protein Albumin Albumin/Globulin Ratio Lipase Urine Color Urine Turbidity Urine pH Ur Specific [place] Urine Protein Urine Glucose (UA) Urine Ketones Urine Blood Urine Nitrite Urine Bilirubin Urine Urobilinogen Ur Leukocyte Esterase Urine WBC (Auto) Urine RBC (Auto) U Epithel Cells (Auto) Urine Mucus Assessment and Plan - Patient Problems (1) Epigastric pain Current Visit: Yes Status: Acute Plan to address problem: # Epigastric pain - CT a/p showing possible antral wall thickening. - DDx including PUD, gastritis, esophagitis. Rec - will plan for EGD tomorrow - Keep NPO MN - continue with PPI
[2019-12-24] MEDS ORDERED: ALUM-MAG HYDROXIDE-SIMETHICONE 200-200-20MG/5ML ORAL LIQD 30 ML PO PRN (16:57)
[2019-12-24] MEDS: ONDANSETRON 4 MG/2 ML INJ IV PRN ×2 (17:22→21:53)
[2019-12-24] MEDS: PANTOPRAZOLE 40 MG INJ IV SCH (21:53)
[2019-12-24] MEDS: oxyCODONE /ACETAMINOPHEN 5-325MG TAB PO PRN (21:53)
[2019-12-24] MEDS ORDERED: SODIUM CHLORIDE 0.9% 1000 ML 1,000 ML IV SCH (23:59)
[2019-12-24] MEDS ORDERED: SODIUM CHLORIDE 0.9% 100 ML IVPB IV SCH (23:59)
[2019-12-25 04:10] LABS: Basophils % (Auto) 0.1 % (0.0-1.8); Eosinophils # (Auto) 0.1 K/mm3 (0.0-0.4); Eosinophils % (Auto) 1.9 % (0.0-4.3); Hematocrit 38.9 % (30.3-42.9); Hemoglobin 13.2 gm/dl (10.1-14.3); Lymphocytes # (Auto) 1.9 K/mm3 (1.2-5.4); Lymphocytes % (Auto) 31.8 % (13.4-35.0); Mean Corpuscular HGB Conc 34 % (30-34); Mean Corpuscular Volume 97 fl (79-97); Monocytes # (Auto) 0.7 K/mm3 (0.0-0.8); Monocytes % (Auto) 11.3 % (0.0-7.3); Platelet Count 223 K/mm3 (140-440); Red Blood Count 4.01 M/mm3 (3.65-5.03); Red Cell Distribution Width 14.6 % (13.2-15.2)
[2019-12-25 04:20] LABS: Blood Urea Nitrogen 22 mg/dL (7-17); Hemolysis Index 20
[2019-12-25 04:22] LABS: BUN/Creatinine Ratio 31
[2019-12-25] MEDS: ENOXAPARIN 40 MG/0.4 ML INJ SUB-Q SCH (10:13)
[2019-12-25] MEDS: PANTOPRAZOLE 40 MG INJ IV SCH ×2 (10:13→21:13)
[2019-12-25] MEDS ORDERED: SODIUM CHLORIDE 0.9% 1000 ML 1,000 ML IV SCH (10:15)
[2019-12-25] MEDS ORDERED: ONDANSETRON 4 MG/2 ML INJ ONE (11:33)
[2019-12-25] MEDS ORDERED: LIDOCAINE MPF (2%) 20 MG/1 ML VIAL 5 ML ONE (11:33)
[2019-12-25] MEDS ORDERED: propofoL 200 MG/20 ML VIAL IV ONE (11:34)
--- NOTE | 2019-12-25 11:50 | Operative Report ---
Operative Report Operative Report: Esophagogastroduodenoscopy Procedure Note with biopsies Date of procedure: 12/25/2019 Endoscopist: Cristiano Rodriguez Pre-op diagnosis/indication: Abdominal pain, abnormal CT scan of stomach Post-op diagnosis: Multiple clean based ulcers in the antrum of the stomach MEDICATIONS: MAC COMPLICATIONS: No immediate complications ESTIMATED BLOOD LOSS: Minimal DESCRIPTION OF PROCEDURE: After consent was obtained, the patient was placed in the left lateral decubitis position. The olympus endoscope was inserted into the patient's mouth under direct vision and advanced to the 2nd portion of the duodenum without difficulty. The patient tolerated the procedure well. The views of the mucosa were good. The patient's vital signs were monitored continuously throughout the procedure. FINDINGS: There was mild esophagitis at the GE junction, otherwise the esophagus appeared normal. There were multiple (4 to 5) clean based ulcers in the antrum of the stomach. The largest ulcer was ~1 cm in size and cratered. There were multiple smaller ulcers in the antrum and one in the pyloric channel. No high risk bleeding stigmata. Biopsies from the stomach/antrum were obtained. The duodenum appeared normal. IMPRESSION: 1. Multiple clean based ulcers in the antrum of the stomach. Biopsies were obtained. RECOMMENDATIONS: -start on PPI BID dosing and carafate QID -avoid nsaid medications -follow-up pathology -okay to resume diet from gi stand point -repeat EDG in 2 months to assess for ulcer healing
--- NOTE | 2019-12-25 11:57 | Progress Note ---
Assessment and Plan Assessment and plan: --Gastric ulcer disease : Status post EGD 1. Multiple clean based ulcers in the antrum of the stomach. Biopsies were obtained. --epigastric pain Current Visit: Yes Status: Acute Plan to address problem: GI evaluated the patient Status post EGD, findings as above IV Protonix, avoid NSAID group of medications Advance diet as tolerated -- DVT prophylaxis Current Visit: Yes Status: Acute Plan to address problem: -Lovenox subcu -SCDs while in bed --Full code status Current Visit: Yes Status: Acute Since patient had multiple gastric ulcers status post biopsy We will closely observe overnight for any episodes of bleeding On drop in H&H, and DC a.m. if patient is stable Plan of care reviewed with the patient and her nurse Possible discharge home tomorrow if stable History Interval history: I have seen and examined the patient this morning Admitted with epigastric pain, evaluated by GI Patient had EGD, multiple gastric ulcers biopsied Patient feels better No new complaints Vital signs reviewed Hospitalist Physical - Constitutional Vitals: Temp Pulse Resp BP Pulse Ox 98.4 F 79 10 L 133/67 95 12/25/19 11:08 12/25/19 11:08 12/25/19 11:08 12/25/19 11:08 12/25/19 11:08 General appearance: Present: no acute distress, well-nourished - EENT Eyes: Present: PERRL, EOM intact - Neck Neck: Present: supple, normal ROM - Respiratory Respiratory effort: normal Respiratory: bilateral: diminished, negative: rales, rhonchi, wheezing - Cardiovascular Rhythm: regular Heart Sounds: Present: S1 & S2 - Extremities Extremities: no ischemia, No edema - Abdominal General gastrointestinal: soft, non-tender, non-distended, normal bowel sounds - Integumentary Integumentary: Present: clear, warm - Psychiatric Psychiatric: appropriate mood/affect, cooperative - Neurologic Neurologic: moves all extremities HEART Score - HEART Score EKG: Normal Age: > 65 Risk factors: 1-2 risk factors Troponin: Troponin T < 0.010 ng/mL (0.00-0.029) 12/24/19 13:36 Troponin: < normal limit - Critical Actions Critical Actions: 0-3 pts:0.9-1.7%risk of adverse cardiac event.Candidate for discharge Results - Labs CBC & Chem 7: 12/25/19 03:33 12/25/19 03:33 Labs: Laboratory Last Values WBC 5.9 K/mm3 (4.5-11.0) 12/25/19 03:33 RBC 4.01 M/mm3 (3.65-5.03) 12/25/19 03:33 Hgb 13.2 gm/dl (10.1-14.3) 12/25/19 03:33 Hct 38.9 % (30.3-42.9) 12/25/19 03:33 MCV 97 fl (79-97) 12/25/19 03:33 MCH 33 pg (28-32) H 12/25/19 03:33 MCHC 34 % (30-34) 12/25/19 03:33 RDW 14.6 % (13.2-15.2) 12/25/19 03:33 Plt Count 223 K/mm3 (140-440) 12/25/19 03:33 Lymph % (Auto) 31.8 % (13.4-35.0) 12/25/19 03:33 [place] % (Auto) 11.3 % (0.0-7.3) H 12/25/19 03:33 Eos % (Auto) 1.9 % (0.0-4.3) 12/25/19 03:33 Baso % (Auto) 0.1 % (0.0-1.8) 12/25/19 03:33 Lymph # 1.9 K/mm3 (1.2-5.4) 12/25/19 03:33 [place] # 0.7 K/mm3 (0.0-0.8) 12/25/19 03:33 Eos # 0.1 K/mm3 (0.0-0.4) 12/25/19 03:33 Baso # 0.0 K/mm3 (0.0-0.1) 12/25/19 03:33 Seg Neutrophils % 54.9 % (40.0-70.0) 12/25/19 03:33 Seg Neutrophils # 3.3 K/mm3 (1.8-7.7) 12/25/19 03:33 Sodium 144 mmol/L (137-145) 12/25/19 03:33 Potassium 4.0 mmol/L (3.6-5.0) 12/25/19 03:33 Chloride 107.1 mmol/L (98-107) H 12/25/19 03:33 Carbon Dioxide 23 mmol/L (22-30) 12/25/19 03:33 Anion Gap 18 mmol/L 12/25/19 03:33 BUN 22 mg/dL (7-17) H 12/25/19 03:33 Creatinine 0.7 mg/dL (0.6-1.2) 12/25/19 03:33 Estimated GFR > 60 ml/min 12/25/19 03:33 BUN/Creatinine Ratio 31 % 12/25/19 03:33 Glucose 89 mg/dL (65-100) 12/25/19 03:33 Hemoglobin A1c 5.9 % (4-6) 12/24/19 13:36 Calcium 9.0 mg/dL (8.4-10.2) 12/25/19 03:33 Total Bilirubin 0.50 mg/dL (0.1-1.2) 12/24/19 08:31 AST 20 units/L (5-40) 12/24/19 08:31 ALT 17 units/L (7-56) 12/24/19 08:31 Alkaline Phosphatase 120 units/L (35-129) 12/24/19 08:31 Troponin T < 0.010 ng/mL (0.00-0.029) 12/24/19 13:36 NT-Pro-B Natriuret Pep 28.37 pg/mL (0-900) 12/24/19 13:36 Total Protein 6.4 g/dL (6.3-8.2) 12/24/19 08:31 Albumin 3.7 g/dL (3.9-5) L 12/24/19 08:31 Albumin/Globulin Ratio 1.4 % 12/24/19 08:31 Lipase 40 units/L (13-60) 12/24/19 10:41 Urine Color Straw (Yellow) 12/24/19 11:49 Urine Turbidity Clear (Clear) 12/24/19 11:49 Urine pH 7.0 (5.0-7.0) 12/24/19 11:49 Ur Specific [place] 1.031 (1.003-1.030) H 12/24/19 11:49 Urine Protein <15 mg/dl mg/dL (Negative) 12/24/19 11:49 Urine Glucose (UA) Neg mg/dL (Negative) 12/24/19 11:49 Urine Ketones Neg mg/dL (Negative) 12/24/19 11:49 Urine Blood Neg (Negative) 12/24/19 11:49 Urine Nitrite Neg (Negative) 12/24/19 11:49 Urine Bilirubin Neg (Negative) 12/24/19 11:49 Urine Urobilinogen < 2.0 mg/dL (<2.0) 12/24/19 11:49 Ur Leukocyte Esterase Tr (Negative) 12/24/19 11:49 Urine WBC (Auto) 4.0 /HPF (0.0-6.0) 12/24/19 11:49 Urine RBC (Auto) 2.0 /HPF (0.0-6.0) 12/24/19 11:49 U Epithel Cells (Auto) 1.0 /HPF (0-13.0) 12/24/19 11:49 Urine Mucus Few /HPF 12/24/19 11:49 [place]/IV: Voiding Method Toilet IV Catheter Type [Left Forearm INT / Saline Lock ] Active Medications - Current Medications Current Medications: Generic Name Dose Route Start Last Admin Trade Name Freq PRN Reason Stop Dose Admin Acetaminophen 650 mg 12/24/19 12:52 Tylenol PO Q6H PRN Pain, Mild (1-3) Al Hydrox/Mg Hydrox/Simethicone 30 ml 12/24/19 16:57 Alum-Mag Hydrox-Simeth 082-695-03ip/5ml PO Q4H PRN Indigestion Enoxaparin Sodium 40 mg 12/25/19 10:00 12/25/19 10:13 Enoxaparin SUB-Q Not Given QDAY@1000 MARIBEL Sodium Chloride 1,000 mls @ 50 mls/hr 12/25/19 10:15 Nacl 0.9% 1000 Ml IV DIRECT MARIBEL Morphine Sulfate 1 mg 12/24/19 14:20 12/24/19 17:21 Morphine IV 1 mg Q6HR PRN Administration Pain , Severe (7-10) Ondansetron HCl 4 mg 12/24/19 14:17 12/24/19 21:53 Zofran IV 4 mg Q8H PRN Administration Nausea And Vomiting Oxycodone/Acetaminophen 1 tab 12/24/19 14:17 12/24/19 21:53 Percocet 5/325 PO 1 tab Q6H PRN Administration Pain, Moderate (4-6) Pantoprazole Sodium 40 mg 12/24/19 22:00 12/25/19 10:13 Protonix IV 40 mg BID MARIBEL Administration Sodium Chloride 10 ml 12/24/19 12:52 Sodium Chloride Flush Syringe 10 Ml IV PRN PRN LINE FLUSH
[2019-12-25] MEDS: oxyCODONE /ACETAMINOPHEN 5-325MG TAB PO PRN (21:37)
[2019-12-26 05:43] VITALS: BP 125/66
[2019-12-26 07:22] LABS: Basophils % (Auto) 0.3 % (0.0-1.8); Eosinophils # (Auto) 0.1 K/mm3 (0.0-0.4); Hematocrit 35.2 % (30.3-42.9); Hemoglobin 12.3 gm/dl (10.1-14.3); Lymphocytes # (Auto) 1.6 K/mm3 (1.2-5.4); Lymphocytes % (Auto) 32.8 % (13.4-35.0); Mean Corpuscular HGB Conc 35 % (30-34); Mean Corpuscular Volume 95 fl (79-97); Monocytes # (Auto) 0.6 K/mm3 (0.0-0.8); Monocytes % (Auto) 11.3 % (0.0-7.3); Platelet Count 216 K/mm3 (140-440); Red Blood Count 3.71 M/mm3 (3.65-5.03); Red Cell Distribution Width 14.4 % (13.2-15.2)
--- NOTE | 2019-12-26 07:48 | Discharge Summary ---
Providers - Providers Date of Admission: 12/24/19 12:42 Date of discharge: 12/26/19 Attending physician: EMMY MEADOWS 12/24/19 14:10 Consult to Physician [CONS] Routine Comment: Consulting Provider: GUMARO AYALA Physician Instructions: Reason For Exam: upper abd pain Primary care physician: LEANDRO FRY Hospitalization Reason for admission: Epigastric pain Condition: Fair Pertinent studies: CT abdomen and pelvis Procedures: EGD, multiple gastric ulcers biopsied Hospital course: This is a 74-year-old female with chronic back pain, arthritis, scoliosis, gastritis, GERD and "leaky valves" was admitted through the emergency department today for a 10-day history of upper abdominal pain in the epigastric region which she described as a burning sharp pain from the "top of the stomach at sphincter to the end at the esophagus" She denies any melena, hematochezia, or hematemesis. Work-up in the emergency department reveals hypokalemia at 3.6. A CT abdomen shows lumbar scoliosis and degenerative changes and a calcified granuloma in her apical left lung. A CT abdomen/pelvis shows mild arteriosclerotic changes to her thoracic aorta, abdominal aorta, mesenteric artery, mild bilateral atelectatic changes in her lower lungs, mild fatty liver, mild bilateral nephrolithiasis without obstruction and wall thickening of the distal atrium of stomach which can be corporate sales representative of distal gastritis or peptic ulcer. Symptomatically managed GI evaluated the patient and subsequently underwent EGD --Gastric ulcer disease : Status post EGD 1. Multiple clean based ulcers in the antrum of the stomach. Biopsies were obtained. --epigastric pain Current Visit: Yes Status: Acute Plan to address problem: GI evaluated the patient Status post EGD, findings as above IV Protonix, avoid NSAID group of medications Advance diet as tolerated -- DVT prophylaxis Current Visit: Yes Status: Acute Plan to address problem: -Lovenox subcu -SCDs while in bed Disposition: -01 TO HOME OR SELFCARE Time spent for discharge: 32 min Core Measure Documentation - Palliative Care Palliative Care/ Comfort Measures: Not Applicable - Core Measures Any of the following diagnoses?: none Exam - Constitutional Vitals: Temp Pulse Resp BP Pulse Ox 97.7 F 69 20 125/66 96 12/26/19 04:42 12/26/19 04:42 12/26/19 04:42 12/26/19 04:42 12/26/19 04:42 General appearance: Present: no acute distress, well-nourished - EENT Eyes: Present: PERRL, EOM intact - Neck Neck: Present: supple, normal ROM - Respiratory Respiratory effort: normal Respiratory: bilateral: diminished, negative: rales, rhonchi, wheezing - Cardiovascular Rhythm: regular Heart Sounds: Present: S1 & S2 - Extremities Extremities: no ischemia, No edema - Abdominal General gastrointestinal: Present: soft, non-tender, non-distended, normal bowel sounds (Epigastric pain) - Integumentary Integumentary: Present: clear, warm - Musculoskeletal Musculoskeletal: generalized weakness - Psychiatric Psychiatric: appropriate mood/affect, cooperative - Neurologic Neurologic: moves all extremities Plan Activity: advance as tolerated, fall precautions Diet: advance as tolerated, other (Mechanical soft diet, advance as tolerated) Additional Instructions: Patient advised to avoid NSAID group of pain medications. Advised to follow GI in 1 to 2 weeks. If you have worsening symptoms or notice any new episodes of bleeding. Contact MD or go to emergency room Follow up with: LEANDRO FRY MD [Primary Care Provider] - 3-5 Days BETY SINGH MD [Staff Physician] - 14 Days Prescriptions: Sucralfate [Carafate] 10 ml PO Q6HR 30 Days #1 bottle Pantoprazole [Protonix TAB] 40 mg PO BID #60 tablet
[2019-12-26] MEDS ORDERED: PANTOPRAZOLE 40 MG TAB PO SCH (10:00)
[2019-12-26] MEDS: ENOXAPARIN 40 MG/0.4 ML INJ SUB-Q SCH (10:15)
== END 2019-12-26 15:08 | disposition home or self-care (01) ==
LOC: ED 07:53 → 4A 12:42
PROVIDERS: ADMIT Internal Medicine; ATTEND Internal Medicine
DX: R07.89 Other chest pain (principal); K25.9 Gastric ulcer, unspecified as acute or chronic, without hemorrhage or perforation; R10.13 Epigastric pain; M41.9 Scoliosis, unspecified; M54.9 Dorsalgia, unspecified; G89.29 Other chronic pain; M19.90 Unspecified osteoarthritis, unspecified site; K29.70 Gastritis, unspecified, without bleeding; K21.9 Gastro-esophageal reflux disease without esophagitis; E11.9 Type 2 diabetes mellitus without complications; N18.6 End stage renal disease; Z79.899 Other long term (current) drug therapy; Z98.891 History of uterine scar from previous surgery
CPT/HCPCS: 36415; 43239; 71275; 74022; 74174; 80048; 80053; 81001; 83036; 83690; 83880; 84484; 85025; 88305; 88342; 93005; 96361; 96372; 96374; 96375; 96376; 99285; C9113; G0378; J1650; J2270; J2405; J2704; J7030; Q9967

== ENCOUNTER 2020-01-28 12:07 | Emergency (ER) | payer MEDICARE ==
--- NOTE | 2020-01-28 12:24 | Emergency Department Report ---
ED Chest Pain HPI - General Chief Complaint: Chest Pain Stated Complaint: MID CHEST PAIN Time Seen by Provider: 01/28/20 12:19 Source: patient Mode of arrival: Wheelchair Limitations: No Limitations - History of Present Illness Initial Comments: Patient is a 74-year-old Romansh female who is presenting with epigastric discomfort for the last 4 days. Pain is worsened today time according to her is been constant. There is mild nausea but no vomiting. He denies any shortness of breath cough cold congestion fevers chills or diarrhea. Patient pain from her visual appearance appears to be a 7 out of 10 in severity. - Related Data Previous Rx's Medication Instructions Recorded Last Taken Type Pantoprazole [Protonix TAB] 40 mg PO BID #60 tablet 12/26/19 Unknown Rx Sucralfate [Carafate] 10 ml PO Q6HR 30 Days #1 bottle 12/26/19 Unknown Rx oxyCODONE /ACETAMINOPHEN [Percocet 1 tab PO BID PRN #6 tablet 12/26/19 Unknown Rx 5/325] Ketorolac [Toradol] 10 mg PO Q6H PRN #12 tablet 01/28/20 Unknown Rx Pantoprazole [Protonix] 40 mg PO QDAY #30 tablet 01/28/20 Unknown Rx Sucralfate [Carafate] 1 gm PO Q6HR 30 Days udc 01/28/20 Unknown Rx Allergies Allergy/AdvReac Type Severity Reaction Status Date / Time No Known Allergies Allergy Unverified 05/06/17 14:25 Heart Score - HEART Score History: Slightly suspicious EKG: Normal Age: > 65 Risk factors: No known risk factors Troponin: < normal limit HEART Score: 2 ED Review of Systems ROS: Stated complaint: MID CHEST PAIN Other details as noted in HPI Comment: All other systems reviewed and negative ED Past Medical Hx - Past Medical History Previous Medical History?: Yes Hx Congestive Heart Failure: No Hx Diabetes: No Hx Arthritis: Yes Hx Asthma: No Hx COPD: No Hx HIV: No - Surgical History Past Surgical History?: Yes Additional Surgical History: Back surgery, Left shoulder surgery. Right knee - Social History Smoking Status: Never Smoker - Medications Home Medications: Home Medications Medication Instructions Recorded Confirmed Last Taken Type Pantoprazole [Protonix TAB] 40 mg PO BID #60 tablet 12/26/19 Unknown Rx Sucralfate [Carafate] 10 ml PO Q6HR 30 Days #1 bottle 12/26/19 Unknown Rx oxyCODONE /ACETAMINOPHEN [Percocet 1 tab PO BID PRN #6 tablet 12/26/19 Unknown Rx 5/325] Ketorolac [Toradol] 10 mg PO Q6H PRN #12 tablet 01/28/20 Unknown Rx Pantoprazole [Protonix] 40 mg PO QDAY #30 tablet 01/28/20 Unknown Rx Sucralfate [Carafate] 1 gm PO Q6HR 30 Days udc 01/28/20 Unknown Rx ED Physical Exam - General Limitations: No Limitations General appearance: alert, in no apparent distress - Head Head exam: Present: atraumatic, normocephalic - Eye Eye exam: Present: normal appearance, PERRL, EOMI - ENT ENT exam: Present: mucous membranes moist - Neck Neck exam: Present: normal inspection - Respiratory Respiratory exam: Present: normal lung sounds bilaterally. Absent: respiratory distress, wheezes, rales, rhonchi - Cardiovascular Cardiovascular Exam: Present: regular rate, normal rhythm, normal heart sounds. Absent: systolic murmur, diastolic murmur, rubs, gallop - GI/Abdominal GI/Abdominal exam: Present: soft, tenderness (epigastric tenderness), normal bowel sounds. Absent: distended, guarding, rebound - Extremities Exam Extremities exam: Present: normal inspection - Back Exam Back exam: Present: normal inspection - Neurological Exam Neurological exam: Present: alert, oriented X3 - Psychiatric Psychiatric exam: Present: normal affect, normal mood - Skin Skin exam: Present: warm, dry, intact, normal color. Absent: rash ADRIANO score - Adriano Score Age > 65: (1) Yes Aspirin use within the Past 7 Days: (0) No 3 or more CAD Risk Factors: (0) No 2 or more Angina events in past 24 hrs: (1) Yes Known CAD with more than 50% Stenosis: (0) No Elevated Cardiac Markers: (0) No ST Deviation Greater than 0.5mm: (0) No ADRIANO Score: 2 ED Medical Decision Making - Lab Data Result diagrams: 01/28/20 12:48 01/28/20 12:48 Lab Results 01/28/20 01/28/20 01/28/20 Range/Units 12:48 12:48 12:48 WBC 11.3 H (4.5-11.0) K/mm3 RBC 4.21 (3.65-5.03) M/mm3 Hgb 13.8 (10.1-14.3) gm/dl Hct 40.6 (30.3-42.9) % MCV 96 (79-97) fl MCH 33 H (28-32) pg MCHC 34 (30-34) % RDW 15.3 H (13.2-15.2) % Plt Count 327 (140-440) K/mm3 Lymph % (Auto) 18.0 (13.4-35.0) % [place] % (Auto) 8.4 H (0.0-7.3) % Eos % (Auto) 0.4 (0.0-4.3) % Baso % (Auto) 0.2 (0.0-1.8) % Lymph # (Auto) 2.0 (1.2-5.4) K/mm3 [place] # (Auto) 0.9 H (0.0-0.8) K/mm3 Eos # (Auto) 0.0 (0.0-0.4) K/mm3 Baso # (Auto) 0.0 (0.0-0.1) K/mm3 Seg Neutrophils % 73.0 H (40.0-70.0) % Seg Neutrophils # 8.3 H (1.8-7.7) K/mm3 PT 11.5 L (12.2-14.9) Sec. INR 0.82 L (0.87-1.13) APTT 25.7 (24.2-36.6) Sec. Sodium 137 (137-145) mmol/L Potassium 4.0 (3.6-5.0) mmol/L Chloride 97.0 L (98-107) mmol/L Carbon Dioxide 28 (22-30) mmol/L Anion Gap 16 mmol/L BUN 25 H (7-17) mg/dL Creatinine 0.7 (0.6-1.2) mg/dL Estimated GFR > 60 ml/min BUN/Creatinine Ratio 36 % Glucose 100 (65-100) mg/dL Calcium 9.7 (8.4-10.2) mg/dL Total Bilirubin 0.60 (0.1-1.2) mg/dL AST 18 (5-40) units/L ALT 19 (7-56) units/L Alkaline Phosphatase 115 (35-129) units/L Troponin T < 0.010 (0.00-0.029) ng/mL Total Protein 5.9 L (6.3-8.2) g/dL Albumin 3.7 L (3.9-5) g/dL Albumin/Globulin Ratio 1.7 % Lipase 30 (13-60) units/L - EKG Data -: EKG Interpreted by Ga EKG shows normal: sinus rhythm, axis, intervals, QRS complexes, ST-T waves Rate: normal - EKG Data Interpretation: normal EKG - Radiology Data Patient: GERALDO PATEL MR#: [id number] : 1945 Acct:[id number] Age/Sex: 74 / F ADM Date: 01/28/20 Loc: ED Attending Dr: Ordering Physician: WILLIAMS ROBBINS MD Date of Service: 01/28/20 Procedure(s): XR chest 1V ap Accession Number(s): [id number] cc: WILLIAMS ROBBINS MD Fluoro Time In Minutes: CHEST 1 VIEW INDICATION: chest/epigastric pain. COMPARISON: Chest x-ray from 05/28/2017 FINDINGS: SUPPORT DEVICES: None. HEART: Within normal limits. LUNGS/PLEURA: Aside from a few scattered calcified granulomata, the lungs are clear. ADDITIONAL FINDINGS: None. IMPRESSION: 1. No acute findings. Signer Name: Eduin Murillo MD Signed: 01/28/2020 1:01 PM Workstation Name: [employer] CT ABDOMEN AND PELVIS WITH CONTRAST HISTORY: severe epigastric pain COMPARISON: None. TECHNIQUE: Axial CT images were obtained through the abdomen and pelvis after 100 cc of Omnipaque 300 intravenously. Sagittal and coronal reformatted images. All CT scans at this location are performed using CT dose reduction for ALARA by means of automated exposure control. FINDINGS: CT ABDOMEN: Lung Bases: Clear. Liver: No significant abnormality. Biliary: No significant abnormality. Spleen: No significant abnormality. Unenlarged. Pancreas: No significant abnormality. Adrenals: No significant abnormality. Kidneys: There are approximately 6 calyceal stones in both kidneys. No obvious focal renal lesion, ureteral stone or hydronephrosis. Lymphatics: No lymphadenopathy. Vasculature: No significant abnormality. Bowel/Peritoneum: There is moderate gastric wall thickening in the distal stomach. No focal ulceration is detected although no IV or oral contrast was administered. The remaining bowel loops and appendix are unremarkable. No free fluid, free air or fluid collection. CT PELVIS: : No significant abnormality. Osseous Structures: Osteopenia. Moderate lumbar spondylosis. Additional Findings: None IMPRESSION: Consider antral gastritis. Bilateral nephrolithiasis, nonobstructing. - Medical Decision Making Patient received Pepcid and Protonix and Carafate and she is feeling some improvement. Patient will be discharged home with follow-up with GI. Symptoms likely due to the focal gastritis seen on CT. Critical care attestation.: If time is entered above; I have spent that time in minutes in the direct care of this critically ill patient, excluding procedure time. ED Disposition Clinical Impression: Acute gastritis Qualifiers: Gastritis type: unspecified gastritis Gastritis bleeding: without bleeding Qualified Code(s): K29.00 - Acute gastritis without bleeding Disposition: TO HOME OR SELFCARE Is pt being admited?: No Does the pt Need Aspirin: No Condition: Stable Instructions: Gastritis (ED), Diet for Ulcers and Gastritis (ED) Referrals: [facility] [Provider Group] - 3-5 Days Time of Disposition: 13:38
[2020-01-28] MEDS ORDERED: ONDANSETRON 4 MG/2 ML INJ IV ONE (12:25)
[2020-01-28] MEDS ORDERED: FAMOTIDINE 20 MG/2 ML INJ IV ONE (12:25)
[2020-01-28] MEDS ORDERED: MORPHINE 2 MG/1 ML INJ IV ONE (12:25)
--- NOTE | 2020-01-28 13:03 | Cat Scan Report ---
CT ABDOMEN AND PELVIS WITH CONTRAST HISTORY: severe epigastric pain COMPARISON: None. TECHNIQUE: Axial CT images were obtained through the abdomen and pelvis after 100 cc of Omnipaque 300 intravenously. Sagittal and coronal reformatted images. All CT scans at this location are performed using CT dose reduction for ALARA by means of automated exposure control. FINDINGS: CT ABDOMEN: Lung Bases: Clear. Liver: No significant abnormality. Biliary: No significant abnormality. Spleen: No significant abnormality. Unenlarged. Pancreas: No significant abnormality. Adrenals: No significant abnormality. Kidneys: There are approximately 6 calyceal stones in both kidneys. No obvious focal renal lesion, ur eteral stone or hydronephrosis. Lymphatics: No lymphadenopathy. Vasculature: No significant abnormality. Bowel/Peritoneum: There is moderate gastric wall thickening in the distal stomach. No focal ulceratio n is detected although no IV or oral contrast was administered. The remaining bowel loops and appendi x are unremarkable. No free fluid, free air or fluid collection. CT PELVIS: : No significant abnormality. Osseous Structures: Osteopenia. Moderate lumbar spondylosis. Additional Findings: None IMPRESSION: Consider antral gastritis. Bilateral nephrolithiasis, nonobstructing. Signer Name: Milton Garner Jr, MD Signed: 01/28/2020 12:58 PM Workstation Name: [id number]
[2020-01-28 13:06] LABS: Basophils % (Auto) 0.2 % (0.0-1.8); Eosinophils % (Auto) 0.4 % (0.0-4.3); Hematocrit 40.6 % (30.3-42.9); Hemoglobin 13.8 gm/dl (10.1-14.3); Mean Corpuscular HGB Conc 34 % (30-34); Mean Corpuscular Volume 96 fl (79-97); Monocytes # (Auto) 0.9 K/mm3 (0.0-0.8); Monocytes % (Auto) 8.4 % (0.0-7.3); Platelet Count 327 K/mm3 (140-440); Red Blood Count 4.21 M/mm3 (3.65-5.03); Red Cell Distribution Width 15.3 % (13.2-15.2)
--- NOTE | 2020-01-28 13:06 | XRay Report ---
CHEST 1 VIEW INDICATION: chest/epigastric pain. COMPARISON: Chest x-ray from 05/28/2017 FINDINGS: SUPPORT DEVICES: None. HEART: Within normal limits. LUNGS/PLEURA: Aside from a few scattered calcified granulomata, the lungs are clear. ADDITIONAL FINDINGS: None. IMPRESSION: 1. No acute findings. Signer Name: Eduin Murillo MD Signed: 01/28/2020 1:01 PM Workstation Name: [id number]
[2020-01-28] MEDS ORDERED: PANTOPRAZOLE 40 MG INJ IV ONE (13:17)
[2020-01-28] MEDS ORDERED: SUCRALFATE 1 GM/10 ML ORAL LIQD PO ONE (13:17)
[2020-01-28 13:20] LABS: INR 0.82 (0.87-1.13)
[2020-01-28 13:21] LABS: Partial Thromboplastin Time 25.7 Sec. (24.2-36.6)
[2020-01-28 13:26] LABS: Alanine Aminotransferase 19 units/L (7-56); Albumin 3.7 g/dL (3.9-5); Blood Urea Nitrogen 25 mg/dL (7-17); Calcium 9.7 mg/dL (8.4-10.2); Hemolysis Index 9
[2020-01-28 13:30] LABS: BUN/Creatinine Ratio 36
[2020-01-28 15:35] VITALS: BP 133/79
== END 2020-01-28 14:55 | disposition home or self-care (01) ==
LOC: ED 12:07
DX: K29.00 Acute gastritis without bleeding (principal); M19.91 Primary osteoarthritis, unspecified site; Z98.890 Other specified postprocedural states; Z79.899 Other long term (current) drug therapy
CPT/HCPCS: 36415; 71045; 74176; 80053; 83690; 84484; 85025; 85379; 85610; 85730; 93005; 96374; 96375; 99285; C9113; J2270; J2405

== ENCOUNTER 2020-02-07 08:36 | Emergency (ER) | payer MEDICARE ==
[2020-02-07 08:57] VITALS: BP 149/75
== END 2020-02-07 23:05 | disposition left against medical advice (07) ==
LOC: ED 08:36
DX: R10.9 Unspecified abdominal pain (principal); Z53.21 Procedure and treatment not carried out due to patient leaving prior to being seen by health care provider

== ENCOUNTER 2020-02-12 00:44 | Emergency (ER) | payer MEDICARE ==
[2020-02-12 04:44] LABS: Basophils % (Auto) 0.1 % (0.0-1.8); Eosinophils % (Auto) 0.2 % (0.0-4.3); Hematocrit 38.7 % (30.3-42.9); Hemoglobin 13.1 gm/dl (10.1-14.3); Lymphocytes # (Auto) 2.3 K/mm3 (1.2-5.4); Lymphocytes % (Auto) 21.3 % (13.4-35.0); Mean Corpuscular HGB Conc 34 % (30-34); Mean Corpuscular Volume 97 fl (79-97); Monocytes # (Auto) 0.7 K/mm3 (0.0-0.8); Monocytes % (Auto) 6.8 % (0.0-7.3); Platelet Count 296 K/mm3 (140-440); Red Blood Count 3.98 M/mm3 (3.65-5.03); Red Cell Distribution Width 14.7 % (13.2-15.2)
[2020-02-12 04:50] LABS: Alanine Aminotransferase 18 units/L (7-56); Albumin 4.1 g/dL (3.9-5); Blood Urea Nitrogen 19 mg/dL (7-17); Calcium 9.8 mg/dL (8.4-10.2); Hemolysis Index 4
[2020-02-12 05:08] LABS: Bilirubin,Urine NEG (Negative); Blood,Urine NEG (Negative); Color,Urine Yellow (Yellow); Mucus,Urine 3+ /HPF; Protein,Urine <15 mg/dL mg/dL (Negative); Urobilinogen,Urine < 2.0 mg/dL (<2.0)
[2020-02-12 05:12] LABS: BUN/Creatinine Ratio 38
[2020-02-12] MEDS ORDERED: MORPHINE 2 MG/1 ML INJ IV ONE (06:40)
[2020-02-12] MEDS ORDERED: ONDANSETRON 4 MG/2 ML INJ IV ONE (06:40)
[2020-02-12] MEDS ORDERED: SODIUM CHLORIDE 0.9% 1000 ML 1,000 ML IV ONE (06:41)
[2020-02-12] MEDS ORDERED: PANTOPRAZOLE 40 MG INJ IV ONE ×2 (06:49→09:43)
--- NOTE | 2020-02-12 06:52 | Emergency Department Report ---
ED Abdominal Pain HPI - General Chief Complaint: Abdominal Pain Stated Complaint: N/V Time Seen by Provider: 02/12/20 06:15 Source: patient Mode of arrival: Stretcher Limitations: No Limitations, Language Barrier - History of Present Illness Initial Comments: Patient is 74 years old female, [place] with history of chronic back pain. Patient was recently admitted to the hospital for upper abdominal pain and had upper GI endoscopy that showed multiple clean ulcers in the antrum of the stomach. Patient presented to the ER today complaining of upper abdominal pain for the last 2 to 3 days associated with nausea and vomiting. Patient denied any fever or chills. No diarrhea. Patient also denied any chest pain or shortness of breath. MD Complaint: abdominal pain -: days(s) Location: epigastric Migration to: no migration - Related Data Previous Rx's Medication Instructions Recorded Last Taken Type Pantoprazole [Protonix TAB] 40 mg PO BID #60 tablet 12/26/19 Unknown Rx Sucralfate [Carafate] 10 ml PO Q6HR 30 Days #1 bottle 12/26/19 Unknown Rx oxyCODONE /ACETAMINOPHEN [Percocet 1 tab PO BID PRN #6 tablet 12/26/19 Unknown Rx 5/325] Ketorolac [Toradol] 10 mg PO Q6H PRN #12 tablet 01/28/20 Unknown Rx Pantoprazole [Protonix] 40 mg PO QDAY #30 tablet 01/28/20 Unknown Rx Sucralfate [Carafate] 1 gm PO Q6HR 30 Days udc 01/28/20 Unknown Rx Allergies Allergy/AdvReac Type Severity Reaction Status Date / Time No Known Allergies Allergy Unverified 05/06/17 14:25 ED Review of Systems ROS: Stated complaint: N/V Other details as noted in HPI Comment: All other systems reviewed and negative Constitutional: denies: chills, fever Respiratory: denies: cough, shortness of breath, SOB with exertion, SOB at rest, wheezing Cardiovascular: denies: chest pain, palpitations Gastrointestinal: abdominal pain, nausea, vomiting. denies: diarrhea, constipation, hematemesis, melena, hematochezia Musculoskeletal: denies: back pain Neurological: denies: headache, weakness, numbness, paresthesias, confusion, abnormal gait ED Past Medical Hx - Past Medical History Previous Medical History?: Yes Hx Congestive Heart Failure: No Hx Diabetes: No Hx Arthritis: Yes Hx Asthma: No Hx COPD: No Hx HIV: No - Surgical History Past Surgical History?: Yes Additional Surgical History: Back surgery, Left shoulder surgery. Right knee - Social History Smoking Status: Never Smoker Substance Use Type: None - Medications Home Medications: Home Medications Medication Instructions Recorded Confirmed Last Taken Type Pantoprazole [Protonix TAB] 40 mg PO BID #60 tablet 12/26/19 Unknown Rx Sucralfate [Carafate] 10 ml PO Q6HR 30 Days #1 bottle 12/26/19 Unknown Rx oxyCODONE /ACETAMINOPHEN [Percocet 1 tab PO BID PRN #6 tablet 12/26/19 Unknown Rx 5/325] Ketorolac [Toradol] 10 mg PO Q6H PRN #12 tablet 01/28/20 Unknown Rx Pantoprazole [Protonix] 40 mg PO QDAY #30 tablet 01/28/20 Unknown Rx Sucralfate [Carafate] 1 gm PO Q6HR 30 Days udc 01/28/20 Unknown Rx ED Physical Exam - General Limitations: No Limitations, Language Barrier General appearance: alert, other (Actively vomiting) - Head Head exam: Present: atraumatic, normocephalic, normal inspection - Eye Eye exam: Present: normal appearance, PERRL - ENT ENT exam: Present: mucous membranes dry - Neck Neck exam: Present: normal inspection, full ROM. Absent: tenderness, meningismus - Respiratory Respiratory exam: Present: normal lung sounds bilaterally - Cardiovascular Cardiovascular Exam: Present: regular rate, normal rhythm, normal heart sounds - GI/Abdominal GI/Abdominal exam: Present: soft, normal bowel sounds. Absent: distended, tenderness, guarding, rebound, rigid, organomegaly, mass, bruit, pulsatile mass, hernia - Extremities Exam Extremities exam: Present: normal inspection, full ROM, normal capillary refill. Absent: tenderness, pedal edema, joint swelling, calf tenderness - Back Exam Back exam: Present: normal inspection, full ROM. Absent: CVA tenderness (R), CVA tenderness (L) - Neurological Exam Neurological exam: Present: alert, oriented X3, CN II-XII intact, normal gait, reflexes normal - Psychiatric Psychiatric exam: Present: normal mood - Skin Skin exam: Present: warm, intact, normal color ED Course Vital Signs 02/12/20 02/12/20 02/12/20 03:32 06:40 06:45 Temperature 98.4 F Pulse Rate 102 H Respiratory 18 16 16 Rate Blood Pressure 113/79 O2 Sat by Pulse 96 100 Oximetry 02/12/20 02/12/20 02/12/20 07:15 07:30 07:45 Temperature Pulse Rate 87 89 90 Respiratory 19 23 21 Rate Blood Pressure 138/80 121/72 130/75 O2 Sat by Pulse 94 98 Oximetry 02/12/20 02/12/20 02/12/20 08:10 08:15 08:30 Temperature Pulse Rate 87 84 86 Respiratory 23 18 20 Rate Blood Pressure 130/75 141/69 154/75 O2 Sat by Pulse 99 98 Oximetry 02/12/20 02/12/20 02/12/20 08:45 09:00 09:15 Temperature Pulse Rate 85 84 82 Respiratory 22 18 25 H Rate Blood Pressure 135/74 128/77 143/77 O2 Sat by Pulse 96 99 99 Oximetry ED Medical Decision Making - Lab Data Result diagrams: 02/12/20 04:11 02/12/20 04:11 - Radiology Data Radiology results: report reviewed - Medical Decision Making Patient is 74 years old female, [place] with history of chronic back pain. Patient was recently admitted to the hospital for upper abdominal pain and had upper GI endoscopy that showed multiple clean ulcers in the antrum of the stomach. Patient presented to the ER today complaining of upper abdominal pain for the last 2 to 3 days associated with nausea and vomiting. Patient denied any fever or chills. No diarrhea. Patient also denied any chest pain or shortness of breath. Labs reviewed and unremarkable. CT abdomen and pelvis showed increased inflammation however there is no acute finding to indicate inpatient admission. Patient stated that she is feeling much better after the morphine, Zofran and Protonix. Patient advised to follow-up with her GI doctor and her primary doctor in the next 2 to 3 days and to return to the ER if she develop any new symptoms. Critical care attestation.: If time is entered above; I have spent that time in minutes in the direct care of this critically ill patient, excluding procedure time. ED Disposition Clinical Impression: Abdominal pain, Nausea & vomiting Disposition: DC-01 TO HOME OR SELFCARE Is pt being admited?: No Condition: Stable Instructions: Abdominal Pain (ED), Peptic Ulcer (ED), Diet for Ulcers and Gastritis (ED) Referrals: LEANDRO FRY MD [Primary Care Provider] - 3-5 Days
--- NOTE | 2020-02-12 08:42 | Cat Scan Report ---
CT abdomen pelvis w con INDICATION / CLINICAL INFORMATION: MAIN. TECHNIQUE: All CT scans at this location are performed using CT dose reduction for ALARA by means of automated e xposure control. COMPARISON: 01/28/2020 FINDINGS: No free fluid is seen in the abdomen. The gastric antrum is markedly thickened. Pancreatic duct dilat ation has developed. There is focal dilatation of the duodenum in the region of the pancreatic head. Small nonobstructing bilateral renal stones are present. The liver, spleen and adrenal glands are nor mal. Atherosclerotic changes present without evidence of an aneurysm. No enlarged mesenteric or retro peritoneal lymph nodes are identified. There is mild fluid-filled small bowel present In the pelvis, no free fluid is seen. No enlarged lymph nodes are identified. The bladder and the olu endix are normal. No significant skeletal abnormality is identified IMPRESSION: 1. Marked gastric antral thickening which has progressed since 01/28/2020. This either represents caleb re inflammation or tumor 2. Mild pancreatic duct dilatation has developed since prior study. There is focal dilatation of the duodenum in the region of the pancreatic head 3. Small nonobstructing bilateral renal stones 4. Fluid in the small bowel may represent mild enteritis Signer Name: Allen Hwang MD FACR Signed: 02/12/2020 8:38 AM Workstation Name: [id number]
[2020-02-12 16:18] VITALS: BP 118/76
== END 2020-02-12 14:00 | disposition home or self-care (01) ==
LOC: ED 00:44
DX: R10.10 Upper abdominal pain, unspecified (principal); R11.2 Nausea with vomiting, unspecified; F17.200 Nicotine dependence, unspecified, uncomplicated; Z79.899 Other long term (current) drug therapy
CPT/HCPCS: 36415; 74177; 80053; 81001; 83690; 85025; 87086; 96361; 96374; 96375; 99284; C9113; J2270; J2405; J7030; Q9967